=== PATIENT | male | born 1940 | race Caucasian/White ===

== ENCOUNTER → 2016-05-11 | Outpatient (CLI) | payer MEDICARE, BC ==
[~2016-05-11] MED LIST: ACETAMINOPHEN PO; ALBUTEROL MININEB NEB; ALBUTEROL17 GM INH; ALEVE; ALPRAZOLAM PO; ALTACE2.5 M1 PO; AMOXICILLIN PO; ANIMAL SHAPES1 EAC2 PO; ASPIRIN EC81 M1 PO; ASPIRIN PO; ASPIRIN81 M2 PO; ATENOLOL PO; COLACE PO; DULERA 200 MCG/13 GM IH; FISH OIL 1,0001 CAP PO; FISH OIL 1,001000 M2 PO; FISH OIL 1,001000 MG PO; FLEXERIL10 MG PO; FLOMAX0.4 M1 PO; GUAIFENESIN/CODEINE PO; MAGNESIUM27 MG; MULTI VITAMIN1 EACH PO; NORCO 7.5/325 T1 TAB PO; NORVASC PO; OMEPRAZOLE40 M1 PO; OMEPRAZOLE40 MG PO; OMNICEF300 M1 PO; OXYGEN; PLAVIX PO; PRAVACHOL PO; PREDNISONE PO; PREDNISONE10 MG PO; PRILOSEC40 MG PO; PROAIR HFA8.5 GM INH; RAMIPRIL5 MG PO; SIMVASTATIN40 MG PO; SPIRIVA18 MCG INH; SPIRONOLACTONE50 MG PO; SYMBICORT INH; TRAZODONE PO; VITAMIN B650 M1 PO; ZITHROMAX500 MG PO
--- NOTE | ~2016-05-11 | CT57 ---
[facility] A Service of [facility] RADIOLOGY TEXT RESULTS PATIENT: VAL HEREDIA JR LOCATION: [facility] : 42 UNIT #: [id number] AGE: [address]: Susan Laguna SEX: M ORDER DR: [id number] [facility] [address] [place], [place] [address] [id number] MR#: [id number] Acc #: [id number] NAME: VAL HEREDIA : 1940 SEX: M STUDY DATE/TIME: 05/11/2016 10:22 UNIT: [facility] ROOM: STUDY DESCRIPTION: CT Chest Wo Cont Attending Physician: Susan Laguna A.P.R.N. Ordering Physician: Susan Laguna A.P.R.N. Primary Care Physician: Antwon Thomas M.D. MEDICAL IMAGING REPORT This report is preliminary unless electronic signature is present EXAM CT chest. DATE OF EXAM 05/11/2016 INDICATIONS COPD. Shortness of air and emphysema. TECHNIQUE CT of the thorax without contrast. Coronal and sagittal reconstructions were obtained. NOTE: This CT exam was performed with one or more of the following radiation dose reduction techniques: automatic exposure control, adjustment of mA and/or kV according to patient size, and iterative reconstruction. COMPARISON CT thorax, dated 05/04/2015. FINDINGS There is a small 4 mm pulmonary nodule along the right minor fissure. This is unchanged from at least 2015 and considered to be benign. There is moderate emphysema. Mild bronchial wall thickening can be seen in the setting of acute or chronic bronchitis. No focal consolidation. There is background emphysema. No pathologically enlarged mediastinal or hilar lymph nodes. No pericardial or pleural effusion. Limited imaging of the upper abdomen were obtained. There is no acute findings. [facility] A Service [facility] RADIOLOGY TEXT RESULTS PATIENT: VAL HEREDIA JR LOCATION: [facility] : 42 UNIT #: [id number] AGE: [address]: Susan Laguna SEX: M ORDER DR: No acute osseous abnormalities. IMPRESSION 1. Small 4 mm pulmonary nodule is unchanged from at least 2015 and considered benign. 2. Emphysema. Dictated by... Joe Garcia M.D. THIS IS AN ELECTRONICALLY VERIFIED REPORT Joe Garcia M.D. at 05/12/2016 7:50 AM ALINA/yoan TD: 05/11/2016 18:04 JOB #: [id number] MEDICAL IMAGING REPORT Page 1 of 1 COPY
== END | disposition home or self-care (01) ==
LOC: CCAT 09:35
DX: J43.9 Emphysema, unspecified (principal); R91.1 Solitary pulmonary nodule
CPT/HCPCS: 71250

== ENCOUNTER 2016-09-27 19:31 | Inpatient (IN) | payer MEDICARE, BC ==
[~2016-09-27] VITALS: Ht 167.6 cm; Wt 84.4 kg
--- NOTE | ~2016-09-27 | CT57 ---
[facility]. [facility] A Service of [facility] RADIOLOGY TEXT RESULTS PATIENT: VAL HEREDIA JR LOCATION: [facility] : 42 UNIT #: [id number] AGE: [address]: Marvin Valera MD SEX: M ORDER DR: [id number] [facility] [address]. [place], [place] [address] [id number] I MR#: [id number] Acc #: [id number] NAME: VAL HEREDIA : 1940 SEX: M STUDY DATE/TIME: 10/02/2016 17:23 UNIT: [facility] ROOM: [facility] STUDY DESCRIPTION: CT Chest Wo Cont Attending Physician: James Valera M.D. Ordering Physician: Nehemiah Sanchez M.D. Primary Care Physician: Antwon Thomas M.D. MEDICAL IMAGING REPORT This report is preliminary unless electronic signature is present EXAM CT chest without contrast HISTORY A 76-year-old male, shortness of air chest discomfort since 09/27/2016, evaluate for possible pulmonary edema. Left upper lobe infiltrate. COMPARISON CT chest 05/11/[address] exam was performed with one or more of the following radiation dose reduction techniques: automatic exposure control, adjustment of mA and/or kV according to patient size, and iterative reconstruction. FINDINGS Axial images performed through the chest without contrast. Multiplanar reconstructed images reviewed. Study is motion degraded. Multifocal cystic change noted within both lungs particularly in the upper lobes compatible with centrilobular emphysema. Mild thickening interlobular septa could reflect some mild interstitial edema but no ground-glass opacities identified. No effusions. Mild tracheobronchomegaly. The heart size within normal limits. Coronary artery calcifications noted. No significant adenopathy. Upper abdomen unremarkable. The prominent soft tissue density in the right chest, compatible with probable gynecomastia. Patient is post median sternotomy. Thoracic inlet unremarkable. IMPRESSION 1. CT findings demonstrate diffuse lung disease with extensive centrilobular emphysema. No definite acute airspace disease or STS. [facility] A Service of [facility] RADIOLOGY TEXT RESULTS PATIENT: VAL HEREDIA JR LOCATION: [facility] 227-01 : 42 UNIT #: [id number] AGE: [address]: Marvin Valera MD SEX: M ORDER DR: consolidation. 2. Mild prominence of the interstitial lung markings probably related to underlying interstitial disease and fibrosis. No convincing evidence of interstitial or alveolar edema. 3. Not mentioned above there is a subtle nodule lateral aspect right middle lobe unchanged from prior CT in May. Dictated by... Paxton Chau M.D. THIS IS AN ELECTRONICALLY VERIFIED REPORT Paxton Chau M.D. at 10/03/2016 2:31 PM Tamika TD: 10/03/2016 04:53 JOB #: [id number] MEDICAL IMAGING REPORT Page 1 of 1 COPY
--- NOTE | ~2016-09-27 | CR72 ---
[facility] A Service of [facility] RADIOLOGY TEXT RESULTS PATIENT: VAL HEREDIA JR LOCATION: [facility] : 42 UNIT #: [id number] AGE: [address]: Marvin Valera MD SEX: M ORDER DR: [id number] [facility] [address] [place], [place] [address] [id number] I MR#: [id number] Acc #: [id number] NAME: VAL HEREDIA JR : 1940 SEX: M STUDY DATE/TIME: 09/27/2016 20:16 UNIT: [facility] ROOM: [facility] STUDY DESCRIPTION: CR Chest Single View Portable Attending Physician: James Valera M.D. Ordering Physician: Mina Berger M.D. Primary Care Physician: Antwon Thomas M.D. MEDICAL IMAGING REPORT This report is preliminary unless electronic signature is present EXAM Single view of the chest dated 09/27/2016 at 2016 hours. COMPARISON Chest 2 views dated 10/20/2014, CT chest without contrast dated 05/11/2016. HISTORY Shortness of air since 09/26/2016. FINDINGS Single view of the chest was obtained. Status post CABG. There is prominence of interstitial markings, probably related to technique or mild interstitial lung disease. There is some mild horizontally linear atelectatic changes in the left lung base. No pleural effusion or pneumothorax. Heart is of normal size. Dictated by... Opal Gracia M.D. THIS IS AN ELECTRONICALLY VERIFIED REPORT Opal Gracia M.D. at 09/28/2016 6:26 PM CPR/psc TD: 09/28/2016 02:29 JOB #: [id number] MEDICAL IMAGING REPORT Page 1 of 1 COPY
--- NOTE | ~2016-09-27 | CR72 ---
[facility] A Service of [facility] & [facility] RADIOLOGY TEXT RESULTS PATIENT: VAL HEREDIA JR LOCATION: [facility] : 42 UNIT #: [id number] AGE: [address]: Marvin Valera MD SEX: M ORDER DR: [id number] [facility] [address] [place] [address] [place], [place] [address] [id number] I MR#: [id number] Acc #: [id number] NAME: VAL HEREDIA : 1940 SEX: M STUDY DATE/TIME: 09/29/2016 5:59 UNIT: [facility] ROOM: [facility] STUDY DESCRIPTION: CR Chest Single View Portable Attending Physician: James Valera M.D. Ordering Physician: James Valera M.D. Primary Care Physician: Antwon Thomas M.D. MEDICAL IMAGING REPORT This report is preliminary unless electronic signature is present EXAM Single view chest. INDICATION Shortness of air and congestion. TECHNIQUE Single portable AP view of the chest compared to 09/27/2016. FINDINGS Heart and mediastinal contours are unchanged. The patient is status post CABG. Left hemidiaphragm is elevated. There are chronic interstitial opacities which are similar to the prior study. No pneumothorax or large pleural effusion. IMPRESSION No interval change. Dictated by... Joe Garcia M.D. THIS IS AN ELECTRONICALLY VERIFIED REPORT Joe Garcia M.D. at 09/29/2016 2:52 PM ALINA/chip TD: 09/29/2016 14:41 JOB #: [id number] MEDICAL IMAGING REPORT Page 1 of 1 COPY
--- NOTE | ~2016-09-27 | EKG ---
PATIENT: VAL HEREDIA UNIT #: [id number] Ventricular Rate: 88 BPM Atrial Rate: 88 BPM P-R Interval: 170 ms QRS Duration: 96 ms Q-T Interval: 356 ms QTC Calculation(Bezet): 430 ms P [place]ph[place]: 74 degrees Calculated R [place]: 83 degrees Calculated T [place]: 73 degrees Diagnosis Line: Sinus rhythm with Premature atrial complexes Diagnosis Line: Possible Anterior infarct , age undetermined Diagnosis Line: Abnormal ECG Diagnosis Line: When compared with ECG of 08-OCT-2014 22:26, Diagnosis Line: Left posterior fascicular block is no longer Diagnosis Line: Present Diagnosis Line: ST elevation now present in Inferior leads Diagnosis Line: Nonspecific T wave abnormality no longer evident Diagnosis Line: in Inferior leads Diagnosis Line: Confirmed by DANAE PHILLIPS MD ([id number]) on 09/29/2016 Diagnosis Line: 4:53:37 PM INTERPRETING MD: ALAN BARRAGAN
--- NOTE | ~2016-09-27 | DS ---
Unit #: [id number] #: [id number] Patient: VAL HEREDIA JR [id number] [address] [place], [place] [address] [id number] I MR#: [id number] NAME: VAL HEREDIA JR ROOM: 227 Age: 76 Sex: M Admission Date: 09/27/2016 : 1940 Discharge Date: 10/03/2016 Attending Physician: James Valera M.D. Primary Care Physician: Antwon Thomas M.D. DISCHARGE SUMMARY ADMISSION REASON 1. Chronic obstructive pulmonary disease exacerbation. 2. Respiratory failure. 3. Acute on chronic respiratory distress, hypercapnic. 4. Chronic obstructive pulmonary disease. CONSULTANTS 1. . HISTORY OF PRESENT ILLNESS This is a 76-year-old gentleman with a history of shortness of air, abdominal distention, abdominal pain, chest x-ray showing new patchy infiltrate in left middle lobe. He was admitted for worsening shortness of breath. Patient was found to have interstitial changes on his chest CT. Therefore, he was brought in to the hospital for treatment of COPD with Rocephin, which was later changed to cefepime and IV steroids. HOSPITAL COURSE Patient improved gradually. Shortness of breath persisted longer than expected. Patient had some evidence of pulmonary edema on chest x-ray; therefore, there was some adjustment of his diuretics. However, patient was discharged on his home dose of Aldactone, as well as lisinopril. He is to follow up with his primary care doctor within 3 to 4 days looking for significant evidence any worsening of renal insufficiency. However, when diuretics were held, patient became slightly more short of breath. The steroids were weaned down to oral, which will be finished in a taper. The antibiotics will be finished, 8-day course. Patient tolerated everything well. FOLLOWUP Patient will follow up with Susan Laguna A.P.R.N. in 2-3 weeks. Also needs to probably follow up with his primary care doctor for diuretic adjustment. I feel the patient probably needs to see a special delivery messenger. DISCHARGE MEDICATIONS 1. Albuterol 2 puffs inhaled daily as needed. 2. Albuterol neb twice a day as needed. 3. Symbicort 2 puffs b.i.d. 4. Spiriva 1 puff inhaled daily. 5. Simvastatin 40 mg daily. 6. Ramipril 5 mg daily. 7. Weston 3 fish oil capsule 1,000 mg daily. 8. Multivitamin 1 tablet daily. 9. Aspirin 81 mg daily. Unit #: [id number] #: [id number] Patient: VAL HEREDIA JR 10. Aldactone 50 mg p.o. daily. 11. Omeprazole 40 mg daily. 12. Omnicef 300 mg p.o. b.i.d. x3 days. 13. Prednisone 40 mg x1 day, 30 mg x2 days, 20 mg x2 days, 10 mg x2 days (#16). DIET No concentrated sweets. ACTIVITY As tolerated. Dictated by... Paris Teague TD: 10/04/2016 13:24 JOB #: [id number] DISCHARGE SUMMARY Page 1 of 1 X Marvin Valera MD X DISCHARGE SUMMARY
--- NOTE | ~2016-09-27 | HP ---
Unit #: [id number] #: [id number] Patient: VAL HEREDIA JR [id number] [address] [place], [place] [address] [id number] I MR#: [id number] NAME: VAL HEREDIA ROOM: 227 Age: 76 Sex: M Admission Date: 09/27/2016 : 1940 Attending Physician: James Valera M.D. Primary Care Physician: Antwon Thomas M.D. HISTORY AND PHYSICAL REASON FOR ADMISSION COPD exacerbation. HISTORY OF PRESENT ILLNESS This is a very pleasant, 76-year-old gentleman who we have seen in the office several times. He is now here with worsening shortness of air, worsening dyspnea, worsening weakness. He denies any sort of sick contacts. He does note (1) who he has been around that has been ill, but he has had about 1-2 days of worsening upper respiratory tract infection, moderate dyspnea on exertion, cough productive of white clear, occasionally slightly yellow-tinged sputum. Patient has had several episodes of COPD and therefore this feels very similar to his previous events. Therefore, patient presented to the emergency room. Due to patient's increased oxygen requirements (usually he is on 2 liters nasal cannula, now he is requiring 6 or 7 liters), patient was admitted for COPD exacerbation. The patient has not been in the hospital for approximately two years. PAST MEDICAL HISTORY Significant for COPD, 2 liters oxygen required; hypertension; dyslipidemia; coronary artery disease, status post 2-vessel bypass in 1996; history of cataract surgery. PAST SURGICAL HISTORY Significant for two-vessel bypass and history of cataract surgery. ALLERGIES Patient has no known medical allergies. MEDICATIONS Home medications include: 1. Symbicort 160/4.5 two puffs inhaled twice daily. 2. Ramipril 5 mg daily. 3. Aldactone 15 mg daily. 4. Omeprazole 40 mg daily. 5. Aspirin 81 mg daily. 6. Simvastatin 40 mg daily. 7. Multivitamin 1 tablet daily. 8. Fish oil 1000 mg daily. 9. Ventolin 1 puff inhaled twice daily as needed. 10. ProAir also 2 puffs twice daily as needed. 11. Tudorza 1 puff twice daily as needed. SOCIAL HISTORY Unit #: [id number] #: [id number] Patient: VAL HEREDIA JR Patient (2) history of tobacco, last smoking in 2014. FAMILY HISTORY Significant for coronary artery disease. REVIEW OF SYSTEMS Negative, except as in the history of present illness. PHYSICAL EXAMINATION VITAL SIGNS: T. current 98.3, pulse 88, respiratory rate 16, blood pressure is 189/95 to 118/85, satting 94% on 6 liters nasal cannula. DIAGNOSTIC STUDIES LABORATORY: Cardiac enzymes negative x1. Basic metabolic negative. Significant for BUN and creatinine 21/1.2, bicarb 37, chloride 96, lactic acid 1.3. White count 9, hemoglobin 14.6, platelets of 194. ASSESSMENT AND PLAN Chronic obstructive pulmonary disease exacerbation. Will check a procalcitonin and make sure there is no evidence of pneumonia. Will check a repeat chest x-ray in the morning. Continue steroids. Will continue patient on Rocephin for chronic obstructive pulmonary disease exacerbation and acute on chronic respiratory failure. Hopefully, patient will start feeling better here soon and we may be able to discharge him after two or three days in the hospital. Dictated by Paris Teague TD: 09/30/2016 06:00 JOB #: [id number] HISTORY AND PHYSICAL Page 1 of 1 X Marvin Valera MD X HISTORY AND PHYSICAL
--- NOTE | ~2016-09-27 | CR72 ---
[facility] A Service of [facility] RADIOLOGY TEXT RESULTS PATIENT: VAL HEREDIA JR LOCATION: [facility] 227-01 : 42 UNIT #: [id number] AGE: [address]: Marvin Valera MD SEX: M ORDER DR: [id number] [facility] [address]. [place], [place] [address] [id number] I MR#: [id number] Acc #: [id number] NAME: VAL HEREDIA JR : 1940 SEX: M STUDY DATE/TIME: 10/01/2016 4:03 UNIT: [facility] ROOM: [facility] STUDY DESCRIPTION: CR Chest Single View Portable Attending Physician: Marvin Valera Ordering Physician: Jaems Valera M.D. Primary Care Physician: Antwon Thomas M.D. MEDICAL IMAGING REPORT This report is preliminary unless electronic signature is present EXAM Portable chest HISTORY Weakness and COPD for 4 days. Cough. FINDINGS Compared to 09/29/2016 there is a new patchy infiltrate in the medial left upper lobe. This could be secondary to pneumonia but is nonspecific. Mild interstitial prominence throughout both lungs is again demonstrated and this could be due to fibrotic scarring or edema. No additional focal infiltrates. Cardiac and mediastinal contours are within normal limits. Sternotomy and CABG. Dictated by... Brice Nguyễn M.D. THIS IS AN ELECTRONICALLY VERIFIED REPORT Brice Nguyễn M.D. at 10/02/2016 4:51 AM LISA/jun TD: 10/02/2016 00:21 JOB #: [id number] MEDICAL IMAGING REPORT Page 1 of 1 COPY
[~2016-09-27 19:31] MED LIST changes: -ASPIRIN EC81 M1 PO; -FISH OIL 1,001000 M2 PO; -PREDNISONE10 MG PO; -PROAIR HFA8.5 GM INH; -SPIRIVA18 MCG INH; -SYMBICORT INH
[2016-09-27 20:25] LABS: BASOPHIL# 0.1 X10e3 (0-0.3); BASOPHIL% 0.6 % (0-2.5); EOSINOPHIL# 0.2 X10e3 (0-0.7); HEMOGLOBIN 14.6 gm/dL (13.0-16.0); LYMPHOCYTE# 1.2 X10e3 (1.0-3.5); LYMPHOCYTE% 13.6 % (17.0-45.0); MEAN CELL VOLUME 98.2 FL (83-96); MEAN CORPUSCULAR HEMOGLOBIN 31.3 PG (28-34); MEAN CORPUSCULAR HGB CONC 31.8 g/dL (30-36); MEAN PLATELET VOLUME 9.3 FL (6.5-11.5); MONOCYTE# 0.9 X10e3 (0-1.0); MONOCYTE% 9.7 % (3.0-12.0); NEUTROPHIL# 6.7 X10e3 (1.5-7.1); NEUTROPHIL% 74.1 % (40-75); PLATELET COUNT 194 X10e3 (140-420); RED BLOOD COUNT 4.68 X10e (3.90-5.60); RED CELL DISTRIBUTION WIDTH 14.7 % (11.0-15.5)
[2016-09-27 20:28] LABS: DIFF IND NO
[2016-09-27 20:46] LABS: BILIRUBIN, DIRECT 0.1 mg/dL (0.0-0.2); BILIRUBIN,INDIRECT 0.3 mg/dL (0.0-0.9); BILIRUBIN,TOTAL 0.4 mg/dL (0.2-2.0); BUN/CREATININE RATIO 17.5; CALCIUM SERUM 9.7 mg/dL (8.4-10.2); CREATININE SERUM 1.2 mg/dL (0.6-1.4); GLOM FILT RATE Estimated 59.2 mL/min (>60); PROTEIN TOTAL SERUM 7.3 g/dL (6.0-8.3)
[2016-09-27 21:04] LABS: POC - CKMB 2.3 ng/mL (0.0-7.9); POC - TROPONIN <0.05 ng/mL (<=0.05)
[2016-09-27] MEDS ORDERED: SPIRONOLACTONE50 MG PO (21:37)
[2016-09-27] MEDS ORDERED: SYMBICORT INH (21:37)
[2016-09-27] MEDS ORDERED: RAMIPRIL5 MG PO (21:37)
[2016-09-27] MEDS ORDERED: OMEPRAZOLE40 M1 PO (21:38)
[2016-09-27] MEDS ORDERED: SIMVASTATIN40 MG PO (21:38)
[2016-09-27] MEDS ORDERED: ASPIRIN EC81 M1 PO (21:38)
[2016-09-27] MEDS ORDERED: FISH OIL 1,001000 M2 PO (21:39)
[2016-09-27] MEDS ORDERED: MULTI VITAMIN1 EACH PO (21:39)
[2016-09-27] MEDS ORDERED: ALBUTEROL17 GM INH (21:40)
[2016-09-27] MEDS ORDERED: PROAIR HFA8.5 GM INH (21:43)
[2016-09-28 05:40] LABS: HEMATOCRIT 44.2 % (38.0-50.0); HEMOGLOBIN 13.9 gm/dL (13.0-16.0); MEAN CELL VOLUME 98.2 FL (83-96); MEAN CORPUSCULAR HGB CONC 31.6 g/dL (30-36); MEAN PLATELET VOLUME 9.2 FL (6.5-11.5); RED BLOOD COUNT 4.5 X10e (3.90-5.60); RED CELL DISTRIBUTION WIDTH 14.5 % (11.0-15.5); WHITE BLOOD COUNT 5.5 X10e3 (4.0-10.5)
[2016-09-28 07:14] LABS: BUN/CREATININE RATIO 17.85; CALCIUM SERUM 9.5 mg/dL (8.4-10.2); CREATININE SERUM 1.4 mg/dL (0.6-1.4); GLOM FILT RATE Estimated 49.2 mL/min (>60)
[2016-09-28 07:24] LABS: POTASSIUM 5.9 mmol/L (3.5-5.1)
[2016-09-28 21:16] LABS: BASOPHIL% 0.2 % (0-2.5); HEMATOCRIT 41.8 % (38.0-50.0); HEMOGLOBIN 13.4 gm/dL (13.0-16.0); LYMPHOCYTE# 0.1 X10e3 (1.0-3.5); LYMPHOCYTE% 1.6 % (17.0-45.0); MEAN CELL VOLUME 98.1 FL (83-96); MEAN CORPUSCULAR HEMOGLOBIN 31.4 PG (28-34); MEAN CORPUSCULAR HGB CONC 32.1 g/dL (30-36); MEAN PLATELET VOLUME 9.1 FL (6.5-11.5); MONOCYTE# 0.2 X10e3 (0-1.0); MONOCYTE% 2.7 % (3.0-12.0); NEUTROPHIL# 8.5 X10e3 (1.5-7.1); NEUTROPHIL% 95.5 % (40-75); PLATELET COUNT 160 X10e3 (140-420); RED BLOOD COUNT 4.26 X10e (3.90-5.60); RED CELL DISTRIBUTION WIDTH 14.3 % (11.0-15.5)
[2016-09-28 21:23] LABS: DIFF IND NO; WHITE BLOOD COUNT 8.9 X10e3 (4.0-10.5)
[2016-09-28 21:47] LABS: ALBUMIN SERUM 3.4 g/dL (3.5-5.0); BILIRUBIN,TOTAL 0.3 mg/dL (0.2-2.0); BUN/CREATININE RATIO 23.57; CALCIUM SERUM 8.9 mg/dL (8.4-10.2); CREATININE SERUM 1.4 mg/dL (0.6-1.4); GLOM FILT RATE Estimated 49.2 mL/min (>60); POTASSIUM 4.9 mmol/L (3.5-5.1); PROTEIN TOTAL SERUM 6.3 g/dL (6.0-8.3)
[2016-09-29 10:25] LABS: BASOPHIL% 0.1 % (0-2.5); HEMATOCRIT 42.8 % (38.0-50.0); HEMOGLOBIN 13.5 gm/dL (13.0-16.0); LYMPHOCYTE# 0.2 X10e3 (1.0-3.5); LYMPHOCYTE% 1.4 % (17.0-45.0); MEAN CELL VOLUME 98.7 FL (83-96); MEAN CORPUSCULAR HEMOGLOBIN 31.2 PG (28-34); MEAN CORPUSCULAR HGB CONC 31.6 g/dL (30-36); MEAN PLATELET VOLUME 9.2 FL (6.5-11.5); MONOCYTE# 0.3 X10e3 (0-1.0); MONOCYTE% 1.9 % (3.0-12.0); NEUTROPHIL# 13.3 X10e3 (1.5-7.1); NEUTROPHIL% 96.6 % (40-75); PLATELET COUNT 164 X10e3 (140-420); RED BLOOD COUNT 4.34 X10e (3.90-5.60); RED CELL DISTRIBUTION WIDTH 14.7 % (11.0-15.5)
[2016-09-29 10:26] LABS: DIFF IND NO; WHITE BLOOD COUNT 13.8 X10e3 (4.0-10.5)
[2016-09-29 11:01] LABS: BUN/CREATININE RATIO 27.5; CALCIUM SERUM 9.1 mg/dL (8.4-10.2); CREATININE SERUM 1.2 mg/dL (0.6-1.4); GLOM FILT RATE Estimated 59.2 mL/min (>60); POTASSIUM 4.5 mmol/L (3.5-5.1)
[2016-09-30 07:18] LABS: BUN/CREATININE RATIO 32.5; CREATININE SERUM 1.2 mg/dL (0.6-1.4); GLOM FILT RATE Estimated 59.2 mL/min (>60); POTASSIUM 4.2 mmol/L (3.5-5.1)
[2016-09-30 08:25] LABS: HEMATOCRIT 43.9 % (38.0-50.0); HEMOGLOBIN 14.1 gm/dL (13.0-16.0); LYMPHOCYTE# 0.2 X10e3 (1.0-3.5); LYMPHOCYTE% 1.4 % (17.0-45.0); MEAN CELL VOLUME 98.4 FL (83-96); MEAN CORPUSCULAR HEMOGLOBIN 31.6 PG (28-34); MEAN CORPUSCULAR HGB CONC 32.1 g/dL (30-36); MEAN PLATELET VOLUME 9.6 FL (6.5-11.5); MONOCYTE# 0.2 X10e3 (0-1.0); MONOCYTE% 1.8 % (3.0-12.0); NEUTROPHIL# 11.2 X10e3 (1.5-7.1); NEUTROPHIL% 96.8 % (40-75); PLATELET COUNT 157 X10e3 (140-420); RED BLOOD COUNT 4.46 X10e (3.90-5.60); RED CELL DISTRIBUTION WIDTH 14.3 % (11.0-15.5); WHITE BLOOD COUNT 11.6 X10e3 (4.0-10.5)
[2016-09-30 08:26] LABS: DIFF IND NO
[2016-10-01 06:16] LABS: URINE SOURCE CLEAN CATCH
[2016-10-01 06:28] LABS: HEMATOCRIT 42.5 % (38.0-50.0); HEMOGLOBIN 13.5 gm/dL (13.0-16.0); MEAN CELL VOLUME 98.4 FL (83-96); MEAN CORPUSCULAR HEMOGLOBIN 31.3 PG (28-34); MEAN CORPUSCULAR HGB CONC 31.8 g/dL (30-36); MEAN PLATELET VOLUME 9.1 FL (6.5-11.5); RED BLOOD COUNT 4.32 X10e (3.90-5.60); RED CELL DISTRIBUTION WIDTH 14.6 % (11.0-15.5); WHITE BLOOD COUNT 12.2 X10e3 (4.0-10.5)
[2016-10-01 06:30] LABS: URINE APPEARANCE CLEAR; URINE BILIRUBIN NEG (NEG); URINE BLOOD NEG (NEG); URINE COLOR YELLOW; URINE GLUCOSE NEG (NEG); URINE KETONE NEG (NEG); URINE LEUKOCYTE ESTERASE NEG (NEG); URINE NITRATE NEG (NEG); URINE PH 5.5 (5-8); URINE PROTEIN NEG (NEG); URINE SPECIFIC GRAVITY 1.026 (1.003-1.035); URINE UROBILINOGEN 0.2 MG/DL (NEG)
[2016-10-01 06:36] LABS: CULTURE INDICATED? NO
[2016-10-01 06:54] LABS: BUN/CREATININE RATIO 34.61; CALCIUM SERUM 8.7 mg/dL (8.4-10.2); CREATININE SERUM 1.3 mg/dL (0.6-1.4); GLOM FILT RATE Estimated 53.8 mL/min (>60); POTASSIUM 4.7 mmol/L (3.5-5.1)
[2016-10-02 08:37] LABS: HEMATOCRIT 46.5 % (38.0-50.0); HEMOGLOBIN 14.9 gm/dL (13.0-16.0); MEAN CELL VOLUME 97.3 FL (83-96); MEAN CORPUSCULAR HEMOGLOBIN 31.1 PG (28-34); MEAN PLATELET VOLUME 9.5 FL (6.5-11.5); RED BLOOD COUNT 4.78 X10e (3.90-5.60); RED CELL DISTRIBUTION WIDTH 14.7 % (11.0-15.5); WHITE BLOOD COUNT 11.5 X10e3 (4.0-10.5)
[2016-10-02 09:19] LABS: BLOOD UREA NITROGEN 52 mg/dL (9-23); BUN/CREATININE RATIO 34.66; CALCIUM SERUM 9.2 mg/dL (8.4-10.2); CARBON DIOXIDE 36 mmol/L (22-31); CHLORIDE 96 mmol/L (100-111); CREATININE SERUM 1.5 mg/dL (0.6-1.4); GLOM FILT RATE Estimated 45.2 mL/min (>60); GLUCOSE FASTING 123 mg/dL (70-110); POTASSIUM 4.4 mmol/L (3.5-5.1); SODIUM 141 mmol/L (135-145)
[2016-10-02 09:20] LABS: PROCALCITONIN <0.05 NG/ML
[2016-10-03 06:11] LABS: HEMATOCRIT 42.4 % (38.0-50.0); HEMOGLOBIN 13.8 gm/dL (13.0-16.0); MEAN CELL VOLUME 96.7 FL (83-96); MEAN CORPUSCULAR HEMOGLOBIN 31.5 PG (28-34); MEAN CORPUSCULAR HGB CONC 32.6 g/dL (30-36); MEAN PLATELET VOLUME 9.5 FL (6.5-11.5); RED BLOOD COUNT 4.38 X10e (3.90-5.60); RED CELL DISTRIBUTION WIDTH 14.5 % (11.0-15.5)
[2016-10-03 06:52] LABS: BUN/CREATININE RATIO 40.83; CALCIUM SERUM 8.7 mg/dL (8.4-10.2); CREATININE SERUM 1.2 mg/dL (0.6-1.4); GLOM FILT RATE Estimated 59.2 mL/min (>60); POTASSIUM 4.5 mmol/L (3.5-5.1)
[2016-10-03] MEDS ORDERED: PROAIR HFA8.5 GM INH (20:24)
[2016-10-03] MEDS ORDERED: SPIRIVA18 MCG INH (20:38)
[2016-10-03] MEDS ORDERED: PREDNISONE10 MG PO (20:39)
[2016-10-03] MEDS ORDERED: OMNICEF300 M1 PO (20:39)
[2016-11-01] MEDS ORDERED: PREDNISONE PO (12:30)
[2016-11-01] MEDS ORDERED: DOXYCYCLINE PO (12:31)
== END 2016-10-03 21:00 | disposition home or self-care (01) | DRG 189 ==
LOC: CED 19:31 → C2A 21:35 → CED 22:58 → C2A 22:58
PROVIDERS: Emergency Medicine; Internal Medicine Pulmonary Disease
DX: J96.21 Acute and chronic respiratory failure with hypoxia (principal); J18.9 Pneumonia, unspecified organism; J81.1 Chronic pulmonary edema; J44.0 Chronic obstructive pulmonary disease with (acute) lower respiratory infection; J44.1 Chronic obstructive pulmonary disease with (acute) exacerbation; I25.10 Atherosclerotic heart disease of native coronary artery without angina pectoris; Z95.1 Presence of aortocoronary bypass graft; Z98.49 Cataract extraction status, unspecified eye; Z99.81 Dependence on supplemental oxygen; Z87.891 Personal history of nicotine dependence; E78.5 Hyperlipidemia, unspecified; Z79.82 Long term (current) use of aspirin
CPT/HCPCS: 36415; 71010; 71250; 80048; 80053; 80076; 81003; 82308; 82553; 83605; 83880; 84484; 85025; 85027; 87040; 93005; 94640; 94644; 94760; 96374; 97110; 97116; 97162; 99285; G8978-GP; G8979-GP; J0692; J0696; J1650; J1940; J2920; J2930